=== PATIENT | female | born 1960 | race Caucasian/White ===

== ENCOUNTER → 2017-04-12 | Outpatient (CLI) | payer BC ==
[~2017-04-12] MED LIST: CEVI30CA2 PO; ESTR1TAB14 PO; FAMO20TA13 PO; IBUP-30 PO; NF-ESOM40C PO; PRM25T PO; [UNRECOGNIZED DRUG - REMARK]
--- NOTE | 2017-04-13 08:20 | Diagnostic Imaging Report ---
Bilateral screening mammogram 2D views with tomosynthesis The current study was also evaluated with a Computer Aided Detection (CAD) system. Indication: Screening. No current complaints stated on the questionnaire. COMPARISON: 01/31/15 FINDINGS: The breasts are composed of heterogeneously dense parenchyma which may decrease mammographic sensitivity. Allowing for technique and positional differences, no suspicious change is seen. IMPRESSION: Dense breasts with no definite change. ACR BI-RADS Category 2: Benign findings. Result letter will be mailed to the patient. Note: At least 10% of breast cancer is not imaged by mammography. Dictated by: Dictated on workstation # [id number]
== END ==
LOC: RAD 13:12
PROVIDERS: ATTEND Obstetrics & Gynecology
DX: Z12.31 Encounter for screening mammogram for malignant neoplasm of breast (principal)
CPT/HCPCS: 77067

== ENCOUNTER 2017-12-07 08:07 | Outpatient (RCR) | payer BC | END 2018-03-07 | disposition home or self-care (01) | LOC: CARD 08:07 | PROVIDERS: ATTEND Internal Medicine Cardiovascular Disease | DX: R00.2 Palpitations (principal); R06.00 Dyspnea, unspecified; R07.89 Other chest pain | CPT/HCPCS: 93225; 93226 ==

== ENCOUNTER → 2018-10-16 | Outpatient (CLI) | payer BC ==
--- NOTE | 2018-10-16 12:01 | Diagnostic Imaging Report ---
INDICATION: Routine screening. COMPARISON: Comparison is made with prior mammograms from 04/12/2017 and 01/31/2015. TECHNIQUE: 2D and 3D bilateral screening mammography was performed with computer-aided detection (CAD) system. FINDINGS: Both breasts are heterogeneously dense, limiting the sensitivity of mammography. Benign calcifications are noted. No dominant mass or malignant-appearing microcalcifications are seen. Axillae are unremarkable. IMPRESSION: No mammographic features suspicious for malignancy are identified. ACR BI-RADS Category 2: Benign findings. Result letter will be mailed to the patient. Note: At least 10% of breast cancer is not imaged by mammography. Dictated by: Dictated on workstation # [id number]
== END ==
LOC: RAD 09:24
PROVIDERS: ATTEND Family Medicine
DX: Z12.31 Encounter for screening mammogram for malignant neoplasm of breast (principal)
CPT/HCPCS: 77067

== ENCOUNTER → 2021-03-19 | Outpatient (CLI) | payer BC ==
--- NOTE | 2021-03-20 09:49 | Diagnostic Imaging Report ---
Digital mammogram INDICATION: Bilateral screening This study was compared to the prior exams of 10/16/2018, 04/12/2017 and 01/31/2015. At this time there are no current complaints. The current study was also evaluated with a Computer Aided Detection (CAD) system. FINDINGS: The fibroglandular tissue in both breasts is heterogeneously dense. This does limit the sensitivity of this exam. Overall, there does not appear to have been any significant change when compared to the prior study. No primary or secondary sign of malignancy is noted. IMPRESSION: 1. There is no radiographic evidence for malignancy. 2. The patient should have her annual bilateral screening mammogram on schedule in February 2022. ACR category 1 ACR BI-RADS Category 1: Negative. Result letter will be mailed to the patient. Note: At least 10% of breast cancer is not imaged by mammography. Dictated by: Dictated on workstation # [id number]
== END ==
LOC: RAD 14:45
PROVIDERS: ATTEND Obstetrics & Gynecology
DX: Z12.31 Encounter for screening mammogram for malignant neoplasm of breast (principal)
CPT/HCPCS: 77063; 77067

== ENCOUNTER 2021-04-24 10:18 | Outpatient (RCR) | payer BC | END 2021-06-26 | disposition home or self-care (01) | PROVIDERS: ATTEND Physician Assistant | DX: M54.41 Lumbago with sciatica, right side (principal) ==

== ENCOUNTER 2021-06-08 08:56 | Outpatient (RCR) | payer BC | END 2021-06-08 10:10 | disposition home or self-care (01) | PROVIDERS: ATTEND Physician Assistant | DX: Z47.1 Aftercare following joint replacement surgery (principal); Z96.651 Presence of right artificial knee joint ==

== ENCOUNTER → 2021-06-23 | Outpatient (CLI) | payer BC ==
--- NOTE | 2021-06-23 09:19 | Diagnostic Imaging Report ---
Clinical indications: Patient is having low back pain. Exam: MRI of the lumbar spine performed without IV contrast. Sagittal T2, sagittal T1, sagittal T2 fat-sat, and axial T2. Comparison: None. Findings: Lumbar spine is normal alignment with no acute fracture or dislocation. There is no significant Modic signal changes. There is no significant paraspinal soft tissue abnormality. The visualized portions of the distal thoracic spinal cord, conus medullaris, and cauda equina nerve roots are unremarkable. The conus medullaris tip is seen at the L1-L2 intervertebral level. There are multiple small perineural cysts involving the right T11-L3 regions and left L1-L2 and L3-L4 levels. The largest one measures roughly 7 mm in the right L1-L2 region. T12-L1: Small anterior spurs are seen. There is no significant central spinal canal or neural foramen narrowing. L1-L2: There is no significant disk bulge. There is no significant central spinal canal or neural foramen narrowing. L2-L3: There is mild diffuse disk bulging and low T2 degenerative disk signal changes. There is no significant central canal narrowing. There is moderate left neural foramen narrowing due to disk bulge. There is minimal right neural foramen narrowing. L3-L4: There is no significant disk bulge. There is mild left neural foramen narrowing associated with the left perineural cyst. Otherwise this level is unremarkable. L4-L5: There is mild right facet arthropathy. There is no significant central spinal canal or neural foramen narrowing. L5-S1: Unremarkable. IMPRESSION: 1: There is a mild disk bulging at the L2-L3 level with associated moderate left neural foramen narrowing. 2: The remainder of the lumbar spine shows mild degenerative changes with no significant central canal or neural foramen narrowing. Dictated by: Dictated on workstation # [id number]
== END ==
LOC: RAD 08:00
DX: M51.26 Other intervertebral disc displacement, lumbar region (principal); M47.816 Spondylosis without myelopathy or radiculopathy, lumbar region; M77.9 Enthesopathy, unspecified; M41.84 Other forms of scoliosis, thoracic region
CPT/HCPCS: 72148

== ENCOUNTER → 2022-06-25 | Outpatient (CLI) | payer BC ==
--- NOTE | 2022-06-25 12:11 | Diagnostic Imaging Report ---
INDICATION: Routine screening. Comparison is made with prior mammogram from 03/19/2021 and 10/14/2018. 2-D and 3-D bilateral screening mammography was performed with CAD. Both breasts are heterogeneously dense, limiting the sensitivity of mammography. The parenchymal pattern is stable. No dominant mass or malignant-appearing microcalcifications are seen. Axillae are unremarkable. IMPRESSION: No mammographic features suspicious for malignancy are identified. ACR BI-RADS Category 1: Negative. Result letter will be mailed to the patient. Note: At least 10% of breast cancer is not imaged by mammography. BI-RADS Category 1 Dictated by: Dictated on workstation # [id number]
== END ==
LOC: RAD 11:30
PROVIDERS: ATTEND Obstetrics & Gynecology
DX: Z12.31 Encounter for screening mammogram for malignant neoplasm of breast (principal)
CPT/HCPCS: 77063; 77067